=== PATIENT | male | born 1950 | race Caucasian/White ===

== ENCOUNTER → 2017-05-13 09:05 | Outpatient (CLI) | payer MEDICARE, MEDICAID, SELFPAY ==
--- NOTE | 2017-05-13 09:30 | PET_ITS ---
EXAMINATION: FDG PET CT INDICATIONS: A 66-year-old male with reported history of carcinoma of the lung presenting for restaging examination. COMPARISON EXAMINATION: CT of the chest report dated 05/08/17, previous FDG PET CT study dated 01/28/17 INDEX LESION SIZE SUV INTERPRETATION PERSISTENT: Right mid posteromedial hemithorax, right upper lobe 19.1 mm (frame 185) 24.0 compared to 17.8 01/28/17 Fulfills quantitative criteria for viable neoplasm , interim metabolic progression NEW: Left mid hemithorax pulmonary parenchyma, left upper lobe 21.8 mm (frame 174) 2.9 Quantitative criteria for viable neoplasm are fulfilled, histopathologic analysis recommended NEW: Left thoracic perihilum 15.8 mm (frame 166) 3.2 Borderline quantitative criteria for viable neoplasm are fulfilled NON-INDEX LESION SIZE SUV INTERPRETATION PERSISTENT: Subcarinal mediastinum, right thoracic perihilum 2.8 (max) compared to 2.2, 01/28/17 Quantitative criteria for viable neoplasm are not fulfilled TECHNIQUE: Following the intravenous administration of 13.9 mCi of F-18 deoxyglucose via the left antecubital fossa, multiplanar image acquisitions of the neck, chest, abdomen and pelvis to level of mid thigh, obtained at one hour post radiopharmaceutical administration contemporaneously interpreted with the current CT of the neck, chest, abdomen and pelvis to level of mid thigh, dated 05/13/17 via coregistration, previous FDG PET study dated 01/28/[address] of the chest report dated 05/08/17 reveal: SERUM GLUCOSE LEVEL: 92 mg/dl. HEIGHT: 68 inches. WEIGHT: 100 lbs. FINDINGS: 1. Increased glucose metabolism is redefined in the right mid posteromedial hemithorax pulmonary parenchyma, right upper lobe generating a calculated maximum standard uptake value of 24.0 compared to 17.8 defined on the previous PET study dated 01/28/70. The maximal axial diameter of the corresponding parenchymal density on review of CT of the thorax dated 05/13/17 is 22.8 mm x 30.1 mm. 2. Newly visualized glucose concentration is presently observed in the left thoracic perihilum with a calculated standard uptake value of 3.2. The maximal axial diameter of the corresponding soft tissue density on review of CT of the thorax dated 05/13/17 is 15.8 mm. Borderline quantitative criteria for viable neoplasm are fulfilled. 3. An increase in radiopharmaceutical concentration is currently defined in the left midanterior lung field, left upper lobe with a calculated standard uptake value of 2.9. The maximal axial diameter of the corresponding parenchymal density on review of CT of the chest dated 05/13/17 is 21.8 mm (AP). 4. Normal physiologic distribution of the radiopharmaceutical is apparent in the hepatic (3.4) and splenic parenchyma, both renal units, bladder and visualized intestinal tract. There is uniform distribution of the radiopharmaceutical concentration compared on the cerebellar hemispheres and cerebral cortex. Diffuse intestinal tract activity is noted throughout all four quadrants of the abdominal-pelvic retroperitoneum, mesentery consistent with normal physiologic distribution of the radiopharmaceutical. Subtle increased glucose metabolism is redemonstrated in the subcarinal mediastinum and right thoracic perihilum and the current calculated standard uptake value of 2.8 compared to 2.2 recorded on the examination dated 01/28/17. Quantitative criteria for viable neoplasm are not fulfilled. Prominent glucose metabolism is defined in the descending thoracic, as well as abdominal aorta. Pertinent CT findings are as follows. CHEST: The lungs are hyperexpanded. Emphysematous change is noted in the bilateral upper-mid lung zones. There are no additional parenchymal densities-nodules defined in the right-left hemithorax demonstrating discernible increased glucose metabolism. Atherosclerotic calcification is defined in the thoracic aorta without evidence of dilatation, aneurysm formation. Coronary arterial calcification is observed. ABDOMEN AND PELVIS: Atherosclerotic calcification is defined in the abdominal aorta without evidence of dilatation, aneurysm formation. Pelvic arterial calcification is observed. Calcified granuloma formation is noted within the hepatic and splenic parenchyma. Right-left inguinal soft tissue densities are ametabolic. SKELETAL: Degenerative changes defined in the cervical, thoracic and lumbar spine demonstrate no evidence for glucose hypermetabolism. Orthopedic hardware placement is noted in the lower cervical spine commensurate with spinal fusion operative intervention. PET/PET/CT Tumor Base -Thigh Subs IMPRESSION: 1. ABNORMAL EXAMINATION INDICATIVE OF MALIGNANT VIABLE NEOPLASM. 2. Increased glucose concentration persistently defined in the right mid posteromedial lung zone, right middle lobe fulfills quantitative criteria for viable neoplasm. (Coles et al, Annals of Internal Medicine, 138:724, 2003). 3. Facilitated glucose metabolism presently manifest in the left mid anterior lung zone, left upper lobe fulfills quantitative criteria for neoplastic infiltration. 4. Enhanced glucose concentration currently noted in the left thoracic perihilum fulfills borderline quantitative criteria for malignant transformation. The increase in uptake redemonstrated in the subcarinal mediastinum and right thoracic perihilum do not fulfill quantitative criteria for malignant transformation.. (Bryce et al, Journal of Clinical Oncology 16:2142, 1997). 5. Facilitated glucose concentration observed in the descending thoracic, as well as abdominal aorta is commensurate with activated leukocytes associated with atherosclerotic plaque formation. (Ginny et al, Clinical Nuclear Medicine 29:93, 2003). 6. Overall compared to the previous FDG PET CT study dated 01/28/17, there is interval progression of defined viable neoplastic disease within the context of the right mid posterior lung-right lower lobe, left mid anterior lung field-left upper lobe, and potentially left thoracic perihilum. Electronic Signature Erick Dhillon D.O. Electronically Signed: Erick Dhillon DO at 16:55 EST Tel , Service support ,
== END ==
PROVIDERS: Family Provider Family Medicine; PCP Family Medicine; Visit Provider Student in an Organized Health Care Education/Training Program
DX: C34.11 Malignant neoplasm of upper lobe, right bronchus or lung (principal)
CPT/HCPCS: 78815; 99211; A9552; A4216; G0463

== ENCOUNTER → 2017-05-17 15:53 | Outpatient (CLI) | payer MEDICARE, MEDICAID, SELFPAY ==
[2017-05-14 13:06] VITALS: BMI 16.5
--- NOTE | 2017-05-17 15:56 | MRI_ITS ---
STUDY: MRI BRAIN WITH AND WITHOUT CONTRAST REASON FOR EXAM: Male, 66 years old. Headache. Known lung cancer. TECHNIQUE: Standardized multiplanar fat and water weighted pulse sequences were obtained. 5 ml of Gadavist contrast material was administered intravenously for the contrast portion of the examination. COMPARISON: CT brain with and without contrast 01/29/2017. FINDINGS: No restricted diffusion to suspect acute or subacute ischemic infarct. Few subcortical white matter T2 FLAIR hyperintensity foci are most likely secondary to microvascular disease. No enhancing lesions intraaxially or extra-axially to suspect or suggest intracranial metastatic disease. Normal size of the ventricles and extra-axial spaces for the patient's age. Normal white matter tracts of the supratentorial brain. Normal bilateral basal ganglia. Normal thalami. There is no extra-axial fluid accumulation. Normal flow voids within the major intracranial circulation suggesting patency by spin echo criteria. Normal venous enhancement. There is no enhancing intra-axial or extra-axial abnormality. Normal sella turcica, pituitary gland, infundibular stalk, optic chiasm and hypothalamus. Normal tectal plate and pineal gland. Normal midbrain, aristeo and medulla. Normal cerebellum. Normal basal cisterns. Normal bilateral temporal bones. Normal bilateral internal auditory canals. No demonstrated orbital abnormality, within the constraints of a routine brain study. Normal visualized paranasal sinuses. Normal calvarium and skull base. Normal visualized soft tissue structures. Normal visualized upper cervical spine. MRI/Brain W/WO Contrast IMPRESSION: 1. No MRI evidence of acute or subacute ischemic infarcts. 2. No MRI evidence of intracranial metastatic disease. 3. Few chronic subcortical white matter ischemic changes in both cerebral hemispheres. Electronically Signed: Oren Wilson MD at 10:12 EST , Service support ,
[2017-05-17 16:16] LABS: CREATININE FINGERSTICK 1.3 mg/dL (0.70-1.30); EGFR FINGERSTICK > 60.0000 mL/min (>60)
--- NOTE | 2017-05-22 09:08 | ONC.PHONE ---
On 05/21/2017 I called Mr. Baig to discuss results from his brain MRI which showed no evidence of metastatic disease and to also update him regarding the potential treatment plans. We had completed CT simulation to treat the right upper lobe mass with radiation therapy but following our study the PET scan result concluded that there were some suspicious mediastinal lymph nodes especially in the left hilum and that there was a left lung lesion that was concerning for viable malignancy. After discussion with pulmonology and interventional radiology it was felt that biopsy of the left lung lesion to be very risky and have a lower chance of success. This case was presented and an extensive discussion ensued at the [facility] radiation therapy chart rounds for lung cancer. Due to comorbidities the patient has limited options that include radiation alone and potentially Pembrolizumab if he is deemed to have metastatic disease. Potential radiation therapy options would include definitive radiation alone to the right lung lesion with observation of the mediastinum and left lung, comprehensive radiation to the right lung lesion as well as the questionable mediastinal lymph nodes extending all the way to the left hilum, or potentially treatment of that large volume with also the addition of the left lung lesion. Following our discussion there is a consensus recommendation to pursue bronchoscopy with EBUS to sample the questionable lymph nodes on the PET scan to further define stage of disease and to provide more information for what volume should receive radiation and how aggressive to be. I discussed this with the patient and he was in agreement to pursue a bronchoscopy which will be completed on 06/07/2017 as this was the soonest that he could get in for this procedure. I also let them know that if he has any episodes of hemoptysis that we may need to initiate more urgent radiation therapy to the right upper lobe lesion, but he has been free from hemoptysis for at least 3 weeks. I will plan to see him back in the office following the bronchoscopy to make definitive plans for his lung cancer treatment. All questions and concerns were addressed and he was instructed to call with any further questions or if he develops any new symptoms in the interim.
== END ==
PROVIDERS: Family Provider Family Medicine; PCP Family Medicine; Visit Provider Student in an Organized Health Care Education/Training Program
DX: C34.11 Malignant neoplasm of upper lobe, right bronchus or lung (principal); R51 Headache
CPT/HCPCS: 70553; A9585

== ENCOUNTER → 2017-06-04 14:16 | Outpatient (CLI) | payer MEDICARE, MEDICAID, SELFPAY ==
[2017-05-28 11:03] VITALS: BMI 16.5
[2017-06-04 15:18] LABS: Absolute Lymphocyte Count 1.73 X10^3/ul (0.83-4.51); Absolute Neutrophil Count 6.7 X10^3/uL (2.0-7.7); Basophil# 0.06 X10^3/uL; Basophil% 0.6 % (0-1); Eosinophil# 1.01 X10^3/uL; Eosinophils% 9.7 % (0-5); Hematocrit 36.8 % (40-54); Hemoglobin 11.6 g/dl (13.0-16.5); Lymphocyte # 1.73 X10^3/ul (4.0); Lymphocyte % 16.6 % (19-41); Mean Corp Hgb Conc 31.5 g/gl (32-36); Mean Corpuscular Hgb 31.9 pg (27.0-32.0); Mean Corpuscular Volume 101.1 fL (80-94); Mean Platelet Vol. 9.2 fl (6.2-12.0); Monocyte# 0.94 X10^3/uL; Neutrophil # 6.65 X10^3/uL (2.7-7.7); Neutrophil % 63.7 % (47-70); Platelet Count 323 K/mm3 (150-450); RBC Distribution Width CV 13.7 % (11.6-14.6); RBC Distribution Width SD 50.7 fl (35.1-43.9); Red Blood Count 3.64 M/mm3 (4.6-6.2); White Blood Count 10.4 K/mm3 (4.4-11.0)
[2017-06-04 15:31] LABS: International Normalized Ratio 1.1; Prothrombin Time (Protime)PT. 13.3 SECONDS (11.7-14.9)
[2017-06-04 15:32] LABS: Partial Thromboplast Time 29.4 Seconds (24.1-36.2)
[2017-06-04 15:42] LABS: POSITIVE COUNT NO; POSITIVE DIFFERENTIAL NO; POSITIVE MORPHOLOGY NO
== END ==
PROVIDERS: Family Provider Internal Medicine; PCP Internal Medicine; Visit Provider Internal Medicine Critical Care Medicine
DX: C34.11 Malignant neoplasm of upper lobe, right bronchus or lung (principal)
CPT/HCPCS: 36415; 85025; 85610; 85730

== ENCOUNTER 2017-06-07 11:23 | Day surgery (SDC) | payer MEDICARE, MEDICAID, SELFPAY ==
[2017-05-14 13:06] VITALS: BMI 16.5
[2017-05-28 11:03] VITALS: BMI 16.5
[2017-06-07] VITALS (12 sets, daily range): BP systolic 109–166; BP diastolic 79–101; PULSE 82–117; RESP 14–22; TEMP 36.1–37.1; O2SAT 95–100; BMI 15.4
--- NOTE | 2017-06-07 | FLU_PTH ---
PATIENT: JOHN BAIG LOC: [facility] [place] U#:[id number] AGE/SX: 66/M ROOM: RE06/07/[address]: Dr. German Baig DO : 1950 BED: DIS: 06/07/2017 SPEC #: [id number] RECD: 06/07/17 08:50 STATUS: CODY REVazquez #: [id number] JUAN MANUEL: 06/07/17 00:[address]: German Baig DEPT: CYTOLOGY RECD BY: Froilan Diaz ENTERED: 06/10/17 08:54 SP TYPE: Fluid OTHR DR: Dr. Letty Saunders MD Tissues: A - Lung, NOS B - Lung, NOS C - Lung, NOS D - Lung, NOS E - Lung, NOS F - Lung, NOS G - Lung, NOS H - Lung, NOS I - Lung, NOS J - Lung, NOS K - Lung, NOS L - Lung, NOS Procedures: Special Stain Group II Surgery Specimen Level IV Cytology Other Comments: Dr. Smith reached the OR at 12:45 p.m. and had to leave the OR for lumpectomy intraoperative consultation at 1:00 and came back at 1:15 to the OR. HEADER OPERATION: Bronchoscopy with EBUS, transbronchial needle aspiration PRE-OP DIAGNOSIS: PET positive scan, squamous cell carcinoma TISSUE SUBMITTED: A-D ? EBUS, FNA #7, E-G ? EBUS, FNA #4R, H & I ? EBUS, FNA #10R, J ? 7 in [facility], K ? 4R in [facility], L ? 10R in [facility] DIAGNOSIS CYTOLOGY A. EBUS aspiration #1, site 7: Lymphocytes present, negative for malignant cells. B. EBUS aspiration #2, site 7: Nondiagnostic. The specimen consists of respiratory epithelial cells only. C. EBUS aspiration #3, site 7: Nondiagnostic specimen. Respiratory epithelial cells and rare lymphocytes present. D. EBUS aspiration #4, site 7: Nondiagnostic specimen. Respiratory epithelial cells and rare lymphocytes present. E. EBUS aspiration #5, site 4R: Nondiagnostic specimen. Mostly blood and a few lymphocytes noted. F. EBUS aspiration #6, site 4R: Nondiagnostic specimen. The specimen consists of predominantly blood and a few respiratory epithelial cells and rare lymphocytes. G. EBUS aspiration #7, site 4R: Nondiagnostic specimen. The specimen entirely consists of blood only. H. EBUS aspiration #8, site 10R: Nondiagnostic specimen. The specimen consists of respiratory epithelial cells only. I. EBUS aspiration #9, site 10R: Nondiagnostic specimen. The specimen entirely consists of blood only. J. Transbronchial needle aspiration, site 7 fluid (cytospin and cell block): Negative for malignant cells. K. Transbronchial needle aspiration, site 4R fluid (cytospin and cell block): Negative for malignant cells. Nondiagnostic specimen. L. Transbronchial needle aspiration, site 10R fluid (cytospin and cell block): Negative for malignant cells. Nondiagnostic specimen. EULA:ami 06/10/17 COMMENT The specimen is evaluated at the time of procedure by Dr. Smith. Immediate Evaluation: A. EBUS aspiration #1, site 7: Lymphocytes present, negative for malignant cells. Reported at 1:17 p.m. B. EBUS aspiration #2, site 7: Nondiagnostic, respiratory epithelial cells only. Reported at 1:17 p.m. C. EBUS aspiration #3, site 7: Nondiagnostic, respiratory epithelial cells and rare lymphocytes. Reported at 1:21 p.m. D. EBUS aspiration #4, site 7: Nondiagnostic, respiratory epithelial cells and rare lymphocytes. Reported at 1:25 p.m. E. EBUS aspiration #5, site 4R: Nondiagnostic, mostly blood, a few lymphocytes. Reported at 1:29 p.m. F. EBUS aspiration #6, site 4R: Nondiagnostic, blood only, respiratory epithelial cells and rare lymphocytes. Reported at 1:32 p.m. G. EBUS aspiration #7, site 4R: Nondiagnostic, blood only. Reported at 1:35 p.m. H. EBUS aspiration #8, site 10R: Nondiagnostic, respiratory epithelial cells only. Reported at 1:39 p.m. I. EBUS aspiration #9, site 10R: Nondiagnostic, blood only. Reported at 1:48 p.m. CYTOLOGY STUDY Slides are reviewed. J. Lymphocytes present, negative for malignant cells. K. The specimen is bloody and consists of respiratory epithelial cells and rare lymphocytes. L. The specimen is bloody and consists of a few respiratory epithelial cells and rare lymphocytes. CYTOLOGY GROSS A ? Received labeled with the patient?s name, and designated ?EBUS FNA, aspiration #1, site 7.? The specimen consists of two smears submitted for immediate cytologic evaluation (wet read). B - Received labeled with the patient?s name, and designated ?EBUS FNA, aspiration #2, site 7.? The specimen consists of two smears submitted for immediate cytologic evaluation (wet read). C - Received labeled with the patient?s name, and designated ?EBUS FNA, aspiration #3, site 7.? The specimen consists of two smears submitted for immediate cytologic evaluation (wet read). D - Received labeled with the patient?s name, and designated ?EBUS FNA, aspiration #4, site 7.? The specimen consists of two smears submitted for immediate cytologic evaluation (wet read). E - Received labeled with the patient?s name, and designated ?EBUS FNA, aspiration #5, site 4R.? The specimen consists of two smears submitted for immediate cytologic evaluation (wet read). F - Received labeled with the patient?s name, and designated ?EBUS FNA, aspiration #6, site 4R.? The specimen consists of two smears submitted for immediate cytologic evaluation (wet read). G - Received labeled with the patient?s name, and designated ?EBUS FNA, aspiration #7, site 4R.? The specimen consists of two smears submitted for immediate cytologic evaluation (wet read). H - Received labeled with the patient?s name, and designated ?EBUS FNA, aspiration #8, site 10R.? The specimen consists of two smears submitted for immediate cytologic evaluation (wet read). I - Received labeled with the patient?s name, and designated ?EBUS FNA, aspiration #9, site 10R.? The specimen consists of two smears submitted for immediate cytologic evaluation (wet read). J ? Received in [facility] and labeled with the patient?s name, and designated ?TBNA site 7.? Submitted for cytology preparation including cell block. K - Received in [facility] and labeled with the patient?s name, and designated ?TBNA site 4R.? Submitted for cytology preparation including cell block. L - Received in [facility] and labeled with the patient?s name, and designated ?TBNA site 10R.? Submitted for cytology preparation including cell block. / SJ:rg 06/07/17 TC:5 CPT: 14798 x3, 81727 x3, 77840 x3 , 17765 x3, 26958 x6 ADDENDUM ADDENDUM ADDENDUM ADDENDUM ADDENDUM ADDENDUM ADDENDUM ADDENDUM ADDENDUM ADDENDUM ADDENDUM ADDENDUM ADDENDUM ADDENDUM ADDENDUM ADDENDUM ADDENDUM ADDENDUM ADDENDUM ADDENDUM ADDENDUM ADDENDUM ADDENDUM ADDENDUM ADDENDUM ADDENDUM ADDENDUM ADDENDUM ADDENDUM ADDENDUM ADDENDUM ADDENDUM ADDENDUM ADDENDUM ADDENDUM ADDENDUM ADDENDUM ADDENDUM ADDENDUM ADDENDUM ADDENDUM ADDENDUM ADDENDUM ADDENDUM ADDENDUM 07/03/2017 10:20 ADDENDUM 07/03/2017 10:20 ADDENDUM 07/03/2017 10:20 ADDENDUM 07/03/2017 10:20 ADDENDUM 07/03/2017 10:20 This addendum is added to incorporate an outside pathology consultation report. The case was examined at [facility] (#[id number]) and the following diagnosis was rendered. A. EBUS, aspiration #1, site 7: No malignant cells are identified. Lymphocytes present. B. EBUS, aspiration #2, site 7: Nondiagnostic specimen. The specimen consists of respiratory epithelial cells only. C. EBUS, aspiration #3, site 7: Nondiagnostic specimen. Respiratory epithelial cells and rare lymphocytes present. D. EBUS, aspiration #4, site 7: Nondiagnostic specimen. Respiratory epithelial cells and rare lymphocytes present. E. EBUS, aspiration #5, site 4R: Nondiagnostic specimen. Mostly blood and a few lymphocytes noted. F. EBUS, aspiration #6, site 4R: Nondiagnostic specimen. The specimen consists of predominantly blood and a few respiratory epithelial cells and rare lymphocytes. G. EBUS, aspiration #7, site 4R: Nondiagnostic specimen. The specimen entirely consists of blood only. H. EBUS, aspiration #8, site 10R: Nondiagnostic specimen. The specimen consists of respiratory epithelial cells only. I. EBUS, aspiration #9, site 10R: Nondiagnostic specimen. The specimen entirely consists of blood only. J. Transbronchial needle aspiration, site 7 fluid: Negative for malignant cells. Lymphoid elements present. K. Transbronchial needle aspiration, site 4R fluid: Nondiagnostic specimen. No lymphoid elements. L. Transbronchial needle aspiration, site 10R fluid: Nondiagnostic specimen. No lymphoid elements. Please see complete above mentioned consultation report in EMR
--- NOTE | 2017-06-07 14:06 | PCM.OP.BLANK ---
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 Due to significant treatment delays, the patient was not seen for consideration of SBRT until April 2017. A CT scan at that time revealed evidence of progressive disease. A repeat PET scan completed at that time demonstrated a hypermetabolic lesion in the right upper lobe. There was also a newly visualized glucose concentration in the left thoracic perihilum. He was evaluated by radiation oncology, who requested that an additional bronchoscopic procedure be performed in order to attempt to access the left perihilum for lymph node sampling, as the patient was being considered for hyperfractionated radiation therapy. PROCEDURE: Bronchoscopy with endoscopic endobronchial ultrasound (EBUS), transbronchial needle aspiration INDICATION: PET positive scan, squamous cell carcinoma PHYSICIAN: German Baig DO ANESTHETIC: This procedure was completed under the supervision of anesthesia. Please refer to their documentation accordingly. COMPLICATIONS: No immediate complications noted. DESCRIPTION OF PROCEDURE: A history and physical has been performed. Please see outpatient pulmonary clinic note. The patient's medications and allergies have been reviewed. The risks and benefits of the procedure and sedation options and risks were discussed with the patient at length. All questions were answered and informed consent was obtained. The patient's identification and proposed procedure were verified prior to the procedure by the physician. ASA GRADE ASSESSMENT: II After obtaining informed consent, the bronchoscope was introduced through the mouth, via laryngeal mask airway and advanced to the tracheal bronchial tree bilaterally. The procedure was accomplished without difficulty. The patient tolerated the procedure well. FINDINGS: The visualized oropharynx appears normal. The vocal cords appeared normal and moved normally with breathing. The subglottic space is normal. The trachea was of normal caliber. The иван is sharp. The tracheal bronchial trees of the left and right lungs were examined to at least the first subsegmental level. Bronchial mucosa was noted to be erythematous and friable. It bled easily. There was also evidence of a moderate degree of extrinsic compression at the right upper lobe takeoff. Once the airway inspection was completed, the standard bronchoscope was withdrawn and a convex probe endobronchial ultrasound (EBUS) bronchoscope was inserted through the same route. The endobronchial ultrasound endoscope was then utilized to systematically examine the superior/inferior mediastinal and hilar lymph nodes to assist with fine-needle aspiration. In total, 9 transbronchial needle aspirations were completed at 3 different lymph node stations. There was a small conglomeration of lymph nodes present at the 10L lymph node station (Left Hilar), which were small (less than 5mm) and readily adjacent to the pulmonary artery. Therefore, TBNA was not performed at lymph node station 10L. Transbronchial needle aspiration was performed at lymph node station 7 (subcarina) using an Olympus EBUS-TBNA 21-gauge needle and sent for routine cytology. The procedure was guided by ultrasound. 4 samples were obtained. Transbronchial needle aspiration was then performed at lymph node station 4R using an Olympus EBUS-TBNA 21-gauge needle and sent for routine cytology. The procedure was guided by ultrasound. 3 samples were obtained. Transbronchial needle aspiration was then performed at lymph node station 10R using an Olympus EBUS-TBNA 21-gauge needle and sent for routine cytology. The procedure was guided by ultrasound. 2 samples were obtained. Rapid on-site evaluation (SABIHA): Preliminary cytology was not suggestive of malignancy. Final pathology results are pending. Following this, the EBUS endoscope was subsequently withdrawn from the patient's airway through the LMA. A conventional bronchoscope was then reinserted into the patient's airway, at which time, any retained secretions and/or blood was cleared. The bronchoscope was then withdrawn without complication. The patient was then transferred to the PACU, where he recovered in the usual fashion. IMPRESSION: 1. There was evidence of a moderate degree of extrinsic compression at the right upper lobe takeoff. 2. There was a small conglomeration of lymph nodes present at the left hilar region, which were small (< 5mm) and not amenable to biopsy due to the proximity to the pulmonary artery. 3. EBUS assisted TBNA was performed at lymph node station 7, 4R and 10R and sent for routine cytology. RECOMMENDATIONS: 1. Await final pathology results. 2. Follow-up with radiation oncology as scheduled. Code Visit 9xxxx: Other Procedure See Report
== END 2017-06-07 17:06 | disposition home or self-care (01) ==
LOC: SDC 11:23 → AC 11:24
PROVIDERS: Family Provider Internal Medicine; PCP Internal Medicine; Visit Provider Internal Medicine Critical Care Medicine
PROC: BB4BZZZ Ultrasonography of Pleura (ICD-10-PCS; principal; 2017-06-07 12:00)
DX: C34.11 Malignant neoplasm of upper lobe, right bronchus or lung (principal); G89.29 Other chronic pain; J32.9 Chronic sinusitis, unspecified; I10 Essential (primary) hypertension; Z87.891 Personal history of nicotine dependence; Z87.01 Personal history of pneumonia (recurrent); Z79.82 Long term (current) use of aspirin
CPT/HCPCS: 31653; 88161; 88305; 88313; 94002; 94640; J7120; J1940

== ENCOUNTER 2017-07-04 14:07 | Emergency (ER) | payer MEDICARE, MEDICAID, SELFPAY ==
[2017-05-28 11:03] VITALS: BMI 16.5
[2017-07-04 14:08] VITALS: BP 133/93; PULSE 76; RESP 20; TEMP 36.9; O2SAT 98; BMI 14.6
--- NOTE | 2017-07-04 14:16 | EKG12_ITS ---
Test Reason : SOB Blood Pressure : / mmHG Vent. Rate : 086 BPM Atrial Rate : 086 BPM P-R Int : 158 ms QRS Dur : 080 ms QT Int : 358 ms P-R-T Axes : 087 002 075 degrees QTc Int : 428 ms Normal sinus rhythm Low voltage QRS Borderline ECG Confirmed by SUYAPA EVERETT, ALFONSO ([id number]), slot editor MAHSA HARRELL ([id number]) on 07/05/2017 2:44:26 PM Referred By: PK Confirmed By:ALFONSO DALE MD
--- NOTE | 2017-07-04 14:17 | RAD_ITS ---
STUDY: X-RAY CHEST REASON FOR EXAM: Male, 66 years old. Increased shortness of breath and coughing up blood while being treated with radiation for lung cancer. TECHNIQUE: Single AP portable view of the chest. COMPARISON: PET/CT, May 13, 2017. FINDINGS: There is diffuse emphysematous changes of lungs which are markedly hyperexpanded. No mass or infiltrate. There is no pneumothorax. There is no demonstrated pleural abnormality. Normal size heart. There is right hilar prominence consistent with the superior hilar mass seen on the PET scan. Normal visualized pulmonary arteries. Normal visualized aortic arch and descending thoracic aorta. The thoracic spine is obscured by the mediastinum. There is anterior fusion of the lower cervical spine. Normal visualized ribs, clavicles, and shoulders. There is no demonstrated abnormality of the visualized soft tissue structures of the upper abdomen. RAD/Chest 1 View (Portable) IMPRESSION: 1. COPD without acute pulmonary mass. 2. Right superior hilar mass. Electronically Signed: Jet Edwards DO at 15:04 EDT Tel [phone], Service support ,
--- NOTE | 2017-07-04 14:26 | NURSING ---
NO OLD EKGS
[2017-07-04 14:28] VITALS: O2SAT 96
--- NOTE | 2017-07-04 14:36 | ED.VISSUMM ---
- ER Visit Summary Date of Service: 07/04/17 Chief Complaint: [] Shortness of breath COPD lung cancer sent to the ED by radiation therapy History of Present Illness: The patient is a 66 M [] history long-standing, he is on 2 L at home O2, he has found to have lung cancer he is getting radiation therapy to right lung he finished the session today he was instructed to come to the emergency department for evaluation even though he states he is basically at baseline nothing is different with his health status. He denies fever denies any changes chronic cough or shortness of breath he is eating and drinking he has all his medications at home, nothing is acutely bothering him Physical Examination: [] Ox is 96% on 2-1/2 L he is awake and alert he is showing no signs of air hunger is very thin and cachectic his neck is supple his lungs are diminished diffusely his heart tones are regular the abdomen is soft nontender upper lower extremity unremarkable he is a very thin gentleman he is moving all 4 extremities and he assures me he feels fine there is nothing wrong with him now Test Results: [] Emergency Department Course and Treatment: [] Refused any aerosol therapy, he refused hand-held MDI, he refused MDI pump therapy he states he simply feels at baseline he does not want to take the meds as it could make him sick he is agreeable to screening labs, his EKG is unremarkable Patient's chest x-ray labs are unremarkable for him, showing nothing new or acute there is the mass in the right chest see that report he is resting resting comfortably in the department he has no complaints again he insists he feels fine wants to go home given all the above he will be discharged to follow-up with his physicians Treatment Plan: [] Disposition: [] Home stable Impression: [] Exacerbation COPD lung cancer This note was generated with [employer] dictation software. It may contain incorrect words, spelling, and punctuation that were not noted in review of the chart prior to signing ED Disposition - Plan for ED Patient: Chief Complaint: Shortness of Breath Referrals: Letty Saunders MD [Primary Care Provider] -
[2017-07-04 14:47] LABS: Absolute Lymphocyte Count 1.05 X10^3/ul (0.83-4.51); Absolute Neutrophil Count 6.1 X10^3/uL (2.0-7.7); Basophil# 0.03 X10^3/uL; Basophil% 0.4 % (0-1); Eosinophil# 0.55 X10^3/uL; Eosinophils% 6.6 % (0-5); Hematocrit 33.8 % (40-54); Hemoglobin 10.8 g/dl (13.0-16.5); Lymphocyte # 1.05 X10^3/ul (4.0); Lymphocyte % 12.6 % (19-41); Mean Corpuscular Hgb 31.9 pg (27.0-32.0); Mean Corpuscular Volume 99.7 fL (80-94); Monocyte# 0.65 X10^3/uL; Monocyte% 7.8 % (0-10); Neutrophil # 6.05 X10^3/uL (2.7-7.7); Neutrophil % 72.4 % (47-70); Platelet Count 305 K/mm3 (150-450); RBC Distribution Width CV 12.9 % (11.6-14.6); RBC Distribution Width SD 45.8 fl (35.1-43.9); Red Blood Count 3.39 M/mm3 (4.6-6.2); White Blood Count 8.4 K/mm3 (4.4-11.0)
[2017-07-04 14:54] LABS: POSITIVE COUNT NO; POSITIVE DIFFERENTIAL NO; POSITIVE MORPHOLOGY NO
[2017-07-04 15:07] LABS: Anion Gap 6 (5-15); BUN 14 mg/dL (7-18); BUN/Creat Ratio 15.3 RATIO (10-20); Calcium,Total 8.8 mg/dL (8.5-10.1); Chloride 97 mmol/L (98-107); Creatinine, Serum 0.91 mg/dL (0.70-1.30); EST Glomerular Filtration Rate 88 mL/min (>60); Est Glom Filt Rate - Afr Amer 106 mL/min (>60); Estimated Creatinine Clearance 48.52 ml/min; Glucose 88 mg/dL (74-106); Potassium 3.7 mmol/L (3.5-5.1); Sodium Level 136 mmol/L (136-145)
[2017-07-04 15:22] LABS: BNP,B-Type NATRIURETIC PEPTIDE 13.8 pg/mL (0-100)
--- NOTE | 2017-07-04 15:52 | ED.DEP ---
ED Disposition - Plan for ED Patient: Chief Complaint: Shortness of Breath Instructions: ED COPD Flare Referrals: Letty Saunders MD [Primary Care Provider] -
[2017-07-04 16:11] VITALS: PULSE 91; RESP 18; O2SAT 97
== END 2017-07-04 16:12 | disposition home or self-care (01) ==
PROVIDERS: Emergency Provider Emergency Medicine; Family Provider Family Medicine; PCP Internal Medicine
DX: J44.1 Chronic obstructive pulmonary disease with (acute) exacerbation (principal); C34.90 Malignant neoplasm of unspecified part of unspecified bronchus or lung; Z99.81 Dependence on supplemental oxygen
CPT/HCPCS: 71045; 77386; 80048; 83880; 84484; 85025; 93005; 99284